=== PATIENT | female | born 1995 | race Caucasian/White ===

== ENCOUNTER → 2019-12-02 11:46 | Outpatient (BNVA) | payer SELFPAY | PROVIDERS: Family Provider Family Medicine; PCP Family Medicine; Visit Provider Nurse Practitioner Family | DX: R39.9 Unspecified symptoms and signs involving the genitourinary system (principal) | CPT/HCPCS: 81003 ==

== ENCOUNTER → 2020-02-03 11:55 | Outpatient (BNVA) | payer SELFPAY | PROVIDERS: Family Provider Family Medicine; PCP Family Medicine; Visit Provider Nurse Practitioner | DX: N39.0 Urinary tract infection, site not specified (principal) | CPT/HCPCS: 80053; 81000; 87077; 87086; 87186 ==

== ENCOUNTER → 2020-04-02 12:32 | Outpatient (BNVA) | payer SELFPAY | PROVIDERS: Family Provider Family Medicine; PCP Family Medicine; Visit Provider Nurse Practitioner | DX: R39.9 Unspecified symptoms and signs involving the genitourinary system (principal) | CPT/HCPCS: 80053; 81003; 87077; 87086; 87186 ==

== ENCOUNTER 2020-05-09 13:29 | Outpatient (CLI) | payer MEDICARE, SELFPAY | END 2020-05-09 13:30 | disposition home or self-care (01) | LOC: WOUND 13:30 | PROVIDERS: Family Provider Family Medicine; PCP Family Medicine; Visit Provider Emergency Medicine | DX: I96 Gangrene, not elsewhere classified (principal); L89.612 Pressure ulcer of right heel, stage 2 | CPT/HCPCS: 11042; G0463; L4397 ==

== ENCOUNTER → 2020-05-15 16:46 | Outpatient (BNVA) | payer MEDICARE, SELFPAY | PROVIDERS: Family Provider Family Medicine; PCP Nurse Practitioner; Visit Provider Nurse Practitioner Family | DX: N30.90 Cystitis, unspecified without hematuria (principal); Z86.69 Personal history of other diseases of the nervous system and sense organs; Z87.448 Personal history of other diseases of urinary system | CPT/HCPCS: 80053; 81001; 87077; 87086; 87186 ==

== ENCOUNTER 2020-05-16 14:59 | Outpatient (CLI) | payer MEDICARE, SELFPAY | END 2020-05-16 15:00 | disposition home or self-care (01) | LOC: WOUND 15:01 | PROVIDERS: Family Provider Family Medicine; PCP Nurse Practitioner; Visit Provider Emergency Medicine | DX: L89.613 Pressure ulcer of right heel, stage 3 (principal) | CPT/HCPCS: 11042 ==

== ENCOUNTER 2020-05-23 14:28 | Outpatient (CLI) | payer MEDICARE, SELFPAY | END 2020-05-23 14:29 | disposition home or self-care (01) | LOC: WOUND 14:29 | PROVIDERS: Family Provider Family Medicine; PCP Nurse Practitioner; Visit Provider Nurse Practitioner Family | DX: L89.613 Pressure ulcer of right heel, stage 3 (principal) | CPT/HCPCS: 11042 ==

== ENCOUNTER 2020-06-06 14:02 | Outpatient (CLI) | payer MEDICARE, SELFPAY | END 2020-06-06 14:03 | disposition home or self-care (01) | LOC: WOUND 14:03 | PROVIDERS: Family Provider Family Medicine; PCP Nurse Practitioner; Visit Provider Nurse Practitioner Family | DX: L89.613 Pressure ulcer of right heel, stage 3 (principal) | CPT/HCPCS: 99212 ==

== ENCOUNTER → 2020-08-08 08:52 | Outpatient (BNVA) | payer MEDICARE, SELFPAY | PROVIDERS: Family Provider Family Medicine; PCP Nurse Practitioner; Visit Provider Nurse Practitioner Family | DX: N30.90 Cystitis, unspecified without hematuria (principal) | CPT/HCPCS: 81000 ==

== ENCOUNTER → 2020-08-28 17:01 | Outpatient (BNVA) | payer MEDICARE, SELFPAY | PROVIDERS: Family Provider Family Medicine; PCP Nurse Practitioner; Visit Provider Nurse Practitioner Family | DX: Z20.828 Contact with and (suspected) exposure to other viral communicable diseases (principal); J02.9 Acute pharyngitis, unspecified | CPT/HCPCS: 87071; 87635; 87880 ==

== ENCOUNTER 2020-11-15 10:12 | Outpatient (CLI) | payer MEDICARE, SELFPAY ==
--- NOTE | 2020-11-15 10:19 | US_ITS ---
WS: [id number] ULTRASOUND RENAL TECHNIQUE: Ultrasound examination of both kidneys. CLINICAL INFORMATION: HX OF NEUROGENIC BLADDER COMPARISON: None. FINDINGS: RIGHT: Right kidney is normal in size and appearance. Echogenicity: Normal. Cortical thickness: 1.0 cm; Normal. Hydronephrosis: None. Perinephric fluid: None. Right kidney measures: 10.6 cm x 5.5 cm x 4.2 cm. LEFT: Left kidney is normal in size and appearance. Echogenicity: Normal. Cortical thickness: 1.2 cm; Normal. Hydronephrosis: None. Perinephric fluid: None. Left kidney measures: 11.2 cm x 4.3 cm x 5.3 cm. Normal visualized aorta. Mild diffuse bladder wall thickening. US/US renal BI* [id number] IMPRESSION: 1. Normal renal ultrasound. 2. Mild diffuse bladder wall thickening.
== END 2020-11-15 10:13 | disposition home or self-care (01) ==
LOC: US 10:16
PROVIDERS: PCP Nurse Practitioner Family; Visit Provider Urology
DX: Z87.448 Personal history of other diseases of urinary system (principal); N30.90 Cystitis, unspecified without hematuria
CPT/HCPCS: 76770; 81003; 87077; 87086; 87184

== ENCOUNTER → 2020-12-26 11:28 | Outpatient (BNVA) | payer MEDICARE, SELFPAY | PROVIDERS: PCP Nurse Practitioner Family; Visit Provider Nurse Practitioner Family | DX: N39.0 Urinary tract infection, site not specified (principal); M79.89 Other specified soft tissue disorders; L81.9 Disorder of pigmentation, unspecified; G82.20 Paraplegia, unspecified; R11.0 Nausea; N30.90 Cystitis, unspecified without hematuria | CPT/HCPCS: 80053; 81000; 85025 ==

== ENCOUNTER 2021-01-22 12:12 | Outpatient (CLI) | payer MEDICARE, SELFPAY ==
--- NOTE | 2021-01-22 12:45 | USCV_ITS ---
IsaacsCynthia crewstie Age: 25 Gender: F : 1995 Exam Date: 01/22/2021 12:35 Ordering Phys: Penny SethC INSULATION BOARD BACK TENDER-C Technologist: Mey Hernandez Exam Location: [facility] [place] Indication: BLE SWELLING AND DISCOLORATION HISTORY: Lower extremity swelling. PROCEDURES: The following venous structures were evaluated: common femoral vein, profunda vein, proximal portion of the greater saphenous vein, superficial femoral vein, and the popliteal vein. In addition, the posterior tibial and peroneal trunk were evaluated. Serial compression, augmentation maneuvers, and spectral Doppler flow evaluation were performed. FINDINGS: No evidence of DVT seen in any vessel visualized at this time. CONCLUSIONS No evidence of right lower extremity DVT. No evidence of left lower extremity DVT. Paulo Thayer MD (Electronically Signed) Final Date: 22 January 2021 17:21 S
== END 2021-01-22 12:13 | disposition home or self-care (01) ==
LOC: RAD 12:18
PROVIDERS: PCP Nurse Practitioner Family; Visit Provider Nurse Practitioner Family
DX: M79.89 Other specified soft tissue disorders (principal); L81.9 Disorder of pigmentation, unspecified
CPT/HCPCS: 93970

== ENCOUNTER 2021-01-23 12:21 | Outpatient (CLI) | payer MEDICARE, SELFPAY ==
--- NOTE | 2021-01-23 12:45 | USCV_ITS ---
Torrie Isaacs Age: 25 Gender: F : 1995 Exam Date: 01/23/2021 12:51 Ordering Phys: Penny Seth TRANSPORTATION SUPERINTENDENTHernanC PIPE LAYER HELPER-C Technologist: Chapito Garcia Exam Location: [facility] [place] Indication: SWELLING DISCOLORATION Risk Factors: Previous Vascular Surgery: RIGHT LEFT BP: 128.0 / 71.00 BP: 120.0/ 68.00 0 0 Waveform Velocity (cm/s) Velocity (cm/s) Waveform Triphasic 131.7 Iliac Prox 155.5 Triphasic Triphasic 163.1 Iliac Mid 139.4 Triphasic Triphasic 139.5 Iliac Distal 140.2 Triphasic Triphasic 132.0 CHILD CARE EDUCATION COORDINATOR 166.3 Triphasic Monophasic 142.1 SFA Prox 157.2 Triphasic Triphasic 133.1 SFA Mid 132.1 Triphasic Monophasic SFA Dist Triphasic 125.9 177.1 Triphasic 120.5 POP 152.3 Triphasic Triphasic 140.3 TIE TAMPER 144.5 Triphasic Triphasic 95.3 DPA 121.2 Triphasic 1.1 LISS 1.1 FINDINGS Normal resting ABIs bilateral Triphasic flow pattern CONCLUSIONS Patent arteries bilaterally No significant arterial obstruction, based on the above findings Dr Jose Turner MD [facility] (Electronically Signed) Final Date: 23 January 2021 23:37 S
== END 2021-01-23 12:22 | disposition home or self-care (01) ==
LOC: RAD 12:26
PROVIDERS: PCP Nurse Practitioner Family; Visit Provider Nurse Practitioner Family
DX: M79.89 Other specified soft tissue disorders (principal); L81.9 Disorder of pigmentation, unspecified
CPT/HCPCS: 93925

== ENCOUNTER 2021-04-27 16:11 | Emergency (ER) | payer MEDICARE, SELFPAY ==
[2021-04-27 16:25] VITALS: BP 103/60; PULSE 66; RESP 15; TEMP 36.6; O2SAT 100; BMI 22.6
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
[2021-04-27 17:18] VITALS: RESP 15; TEMP 36.6; O2SAT 100
== END 2021-04-27 17:19 | disposition home or self-care (01) ==
PROVIDERS: Emergency Provider Physician Assistant; PCP Nurse Practitioner Family
DX: S71.112A Laceration without foreign body, left thigh, initial encounter (principal); Z87.891 Personal history of nicotine dependence; W29.8XXA Contact with other powered hand tools and household machinery, initial encounter
CPT/HCPCS: 12001; 99282

== ENCOUNTER → 2021-07-16 10:18 | Outpatient (BNVA) | payer MEDICARE, SELFPAY | PROVIDERS: PCP Nurse Practitioner Family; Visit Provider Nurse Practitioner Family | DX: R82.90 Unspecified abnormal findings in urine (principal); N39.0 Urinary tract infection, site not specified; N31.9 Neuromuscular dysfunction of bladder, unspecified; R32 Unspecified urinary incontinence; M62.838 Other muscle spasm; Z86.69 Personal history of other diseases of the nervous system and sense organs | CPT/HCPCS: 81000; 87077; 87086; 87184 ==

== ENCOUNTER → 2021-07-25 10:41 | Outpatient (BNVA) | payer MEDICARE, SELFPAY | PROVIDERS: PCP Nurse Practitioner Family; Visit Provider Nurse Practitioner Family | DX: N39.0 Urinary tract infection, site not specified (principal) | CPT/HCPCS: 81000 ==

== ENCOUNTER → 2021-10-02 10:56 | Outpatient (BNVA) | payer MEDICARE, SELFPAY | PROVIDERS: PCP Nurse Practitioner Family; Referring Provider Nurse Practitioner Family; Visit Provider Specialist | DX: G56.01 Carpal tunnel syndrome, right upper limb (principal); G56.21 Lesion of ulnar nerve, right upper limb; R20.0 Anesthesia of skin | CPT/HCPCS: 95910 ==

== ENCOUNTER → 2021-11-01 13:48 | Outpatient (BNVA) | payer MEDICARE, SELFPAY | PROVIDERS: PCP Nurse Practitioner Family; Visit Provider Nurse Practitioner Family | DX: N39.0 Urinary tract infection, site not specified (principal); R39.9 Unspecified symptoms and signs involving the genitourinary system | CPT/HCPCS: 81000 ==

== ENCOUNTER 2021-11-27 10:14 | Outpatient (CLI) | payer MEDICARE, SELFPAY | END 2021-11-27 10:15 | disposition home or self-care (01) | LOC: SPT 10:17 | PROVIDERS: PCP Nurse Practitioner Family; Visit Provider Orthopaedic Surgery | DX: Z46.89 Encounter for fitting and adjustment of other specified devices (principal); G56.01 Carpal tunnel syndrome, right upper limb | CPT/HCPCS: 81003; 87077; 87086; 87184; 97760; L3908 ==

== ENCOUNTER 2022-03-20 09:35 | Outpatient (CLI) | payer MEDICARE, SELFPAY ==
--- NOTE | 2022-03-20 09:42 | XRR_ITS ---
PROCEDURE INFORMATION: Exam: XR Abdomen Exam date and time: 03/20/2022 9:57 AM Age: 26 years old Clinical indication: Condition or disease; Kidney or ureter condition; Other: Recurrent UTI, prior surgery; Surgery type: C sections; Additional info: Recurrent UTI, silasb @ [facility] on 03/20/22 @ 0945. Appt to follow TECHNIQUE: Imaging protocol: XR of the abdomen. Views: Frontal supine view of the abdomen. 1 View. COMPARISON: CT abdomen pelvis w con* [id number] 02/24/2017 2:21 AM FINDINGS: Gastrointestinal tract: Bowel gas pattern is unremarkable. No sign of obstruction. The colon is stool distended. Intraperitoneal space: No visible free air. Organs: No renal or ureteral stone is visible. Bones/joints: Lower thoracic Hunter rods noted. Mild convex left upper lumbar curvature. XR/XR KUB [id number] IMPRESSION: 1. No acute findings. 2. Stool distended colon.
== END 2022-03-20 09:36 | disposition home or self-care (01) ==
PROVIDERS: PCP Nurse Practitioner Family; Visit Provider Urology
DX: N39.0 Urinary tract infection, site not specified (principal); N31.9 Neuromuscular dysfunction of bladder, unspecified; R32 Unspecified urinary incontinence; R82.71 Bacteriuria
CPT/HCPCS: 74018; 81003; 99213

== ENCOUNTER 2022-04-01 09:45 | Outpatient (CLI) | payer MEDICARE, SELFPAY ==
--- NOTE | 2022-04-01 09:52 | XRR_ITS ---
PROCEDURE INFORMATION: Exam: XR Bilateral Hips Exam date and time: 04/01/2022 9:56 AM Age: 26 years old Clinical indication: Right hip; Prior surgery; Surgery type: T8 fusion; Patient HX: Low back and hip pain for 6 months; Additional info: M25.551 - pain in right hip TECHNIQUE: Imaging protocol: XR bilateral hips. Views: 2 views of hips with pelvis when performed. COMPARISON: CT abdomen pelvis w con* [id number] 02/24/2017 2:21 AM FINDINGS: Bones/joints: No acute fracture or malalignment. Joint spaces are maintained. Soft tissues: Unremarkable. XR/XR hip BI 3-4V wo/w pel [id number] IMPRESSION: No acute fracture or malalignment.
--- NOTE | 2022-04-01 09:52 | XRR_ITS ---
PROCEDURE INFORMATION: Exam: XR Lumbosacral Spine Exam date and time: 04/01/2022 9:56 AM Age: 26 years old Clinical indication: Low back pain; Prior surgery; Surgery type: T8 fusion; Additional info: M54.50 - low back pain, unspecified TECHNIQUE: Imaging protocol: XR of the lumbosacral spine. Views: 2 or 3 views. COMPARISON: CT abdomen pelvis w con* [id number] 02/24/2017 2:21 AM FINDINGS: Bones/joints: No acute fracture or malalignment. Partially imaged spinal fixation hardware in the lower thoracic spine. Mild degenerative disc disease at L2-L3. Levocurvature of the lumbar spine. Soft tissues: Unremarkable. XR/XR lumbar spine 2-3V* [id number] IMPRESSION: No acute osseous findings.
== END 2022-04-01 09:46 | disposition home or self-care (01) ==
LOC: RAD 09:47
PROVIDERS: PCP Nurse Practitioner Family; Visit Provider Nurse Practitioner Family
DX: M25.551 Pain in right hip (principal); M25.552 Pain in left hip; M54.50 Low back pain, unspecified
CPT/HCPCS: 72100; 73522

== ENCOUNTER 2022-05-02 06:00 | Outpatient (RCR) | payer MEDICARE, SELFPAY | END 2022-05-18 23:59 | disposition home or self-care (01) | LOC: APT 06:00 | PROVIDERS: PCP Nurse Practitioner Family; Referring Provider Nurse Practitioner Family; Visit Provider Nurse Practitioner Family | DX: M54.50 Low back pain, unspecified (principal); M25.551 Pain in right hip; M25.552 Pain in left hip; Z86.69 Personal history of other diseases of the nervous system and sense organs | CPT/HCPCS: 97110; 97140; 97163 ==

== ENCOUNTER 2022-05-19 06:00 | Outpatient (RCR) | payer MEDICARE, SELFPAY | END 2022-06-18 23:59 | disposition home or self-care (01) | LOC: APT 06:00 | PROVIDERS: PCP Nurse Practitioner Family; Referring Provider Nurse Practitioner Family; Visit Provider Nurse Practitioner Family | DX: M54.50 Low back pain, unspecified (principal); M25.551 Pain in right hip; M25.552 Pain in left hip; Z86.69 Personal history of other diseases of the nervous system and sense organs | CPT/HCPCS: 97110; 97140 ==

== ENCOUNTER 2022-06-10 16:34 | Emergency (ER) | payer MEDICARE, SELFPAY ==
[2022-06-10 16:40] VITALS: BP 109/54; PULSE 86; RESP 17; TEMP 36.3; O2SAT 100; BMI 19.8
[2022-06-10 16:58] VITALS: BP 109/54; PULSE 86; RESP 17; TEMP 36.3; O2SAT 100
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
--- NOTE | 2022-06-10 17:06 | ECG_ITS ---
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 Measurements Intervals [place] Rate: 76 P: 72 NH: 162 QRS: 78 QRSD: 91 T: 72 QT: 371 QTc: 419 Interpretive Statements SINUS RHYTHM No previous ECG available for comparison Electronically Signed On 06-10-2022 17:49:11 CDT by Moses Rai M.D. [id number]
[2022-06-10 17:47] VITALS: BP 112/66; PULSE 81; RESP 17; TEMP 36.3; O2SAT 100
--- NOTE | 2022-06-20 14:20 | DCPLANNER ---
late entry - returned case inspector attempted to contact patient to speak with patient about allergy testing, unable to speak with patient and unable to leave a voicemail
== END 2022-06-10 17:48 | disposition home or self-care (01) ==
PROVIDERS: Emergency Provider Emergency Medicine; PCP Nurse Practitioner Family
DX: T78.40XA Allergy, unspecified, initial encounter (principal)
CPT/HCPCS: 93005; 99283

== ENCOUNTER 2022-06-19 06:00 | Outpatient (RCR) | payer MEDICARE, SELFPAY | END 2022-06-20 23:59 | disposition home or self-care (01) | LOC: APT 06:00 | PROVIDERS: PCP Nurse Practitioner Family; Visit Provider Nurse Practitioner Family | DX: M54.50 Low back pain, unspecified (principal); M25.551 Pain in right hip; M25.552 Pain in left hip; Z86.69 Personal history of other diseases of the nervous system and sense organs | CPT/HCPCS: 97110 ==

== ENCOUNTER 2022-09-03 11:17 | Outpatient (CLI) | payer MEDICARE, SELFPAY ==
--- NOTE | 2022-09-03 11:45 | MR_ITS ---
WS: [id number] MRI LUMBAR SPINE NONCONTRAST HISTORY: M54.50 - Low back pain, unspecified COMPARISON: None available. TECHNIQUE: Sagittal and axial multisequence imaging is submitted. Fusion hardware in the lower thoracic spine. Pedicle screws are noted at T10, T11 and T12. Mild LEFT curvature the lumbar spine. Posterior lumbar alignment is normal. Small amount of edema [place] ng the superior endplate of L3. Disc spaces and vertebral body heights are well-preserved. Conus terminates normally at L1-2 disc level. L1-L2: Mild LEFT facet joint arthritis. No stenosis. L2-L3: Mild bilateral facet joint arthritis. No stenosis. L3-L4: Bilateral facet joint arthritis, LEFT greater than RIGHT. No stenosis. L4-L5: Ligamentum flavum and mild facet joint arthritis. No significant stenosis. L5-S1: Normal. There is free fluid in the cul-de-sac. Complex RIGHT adnexal mass is probably a hemorrhagic cyst with some adjacent fluid. MR/MR lumbar spine wo con* [id number] IMPRESSION: 1. No significant central or foraminal stenosis or disc protrusions. 2. Mild joint arthritis as described above. 3. Physiologic free fluid in the cul-de-sac. Complex cystic mass in the RIGHT adnexa may be hemorrhagic cyst. Consider transvaginal pelvic ultrasound evaluat ion.
== END 2022-09-03 11:18 | disposition home or self-care (01) ==
PROVIDERS: PCP Nurse Practitioner Family; Visit Provider Nurse Practitioner Family
DX: G82.20 Paraplegia, unspecified (principal); G89.29 Other chronic pain; M47.816 Spondylosis without myelopathy or radiculopathy, lumbar region
CPT/HCPCS: 72148

== ENCOUNTER → 2022-09-29 15:44 | Outpatient (BNVA) | payer MEDICARE, SELFPAY | PROVIDERS: PCP Nurse Practitioner Family; Visit Provider Nurse Practitioner Family | DX: N39.0 Urinary tract infection, site not specified (principal) | CPT/HCPCS: 81000 ==

== ENCOUNTER → 2022-10-02 10:26 | Outpatient (BNVA) | payer MEDICARE, SELFPAY | PROVIDERS: PCP Nurse Practitioner Family; Referring Provider Nurse Practitioner Family; Visit Provider Orthopaedic Surgery | DX: M54.9 Dorsalgia, unspecified (principal); G82.20 Paraplegia, unspecified | CPT/HCPCS: 99203 ==

== ENCOUNTER 2022-10-24 15:08 | Outpatient (CLI) | payer MEDICARE, SELFPAY ==
--- NOTE | 2022-10-24 15:15 | USR_ITS ---
PROCEDURE INFORMATION: Exam: US First Trimester, Transabdominal and US , Transvaginal Exam date and time: 10/24/2022 3:27 PM Age: 27 years old Clinical indication: Lmp or gestational age (in weeks): 6w3d; Other: Known ovarian cyst; ; Patient HX: Pg; Additional info: Ovarian cyst seen on mri. Since that test she has tested +, for preg. LABS AND CLINICAL REPORTS: Last menstrual period start date: 08/02/2022 Gestational age (Established): 0 w 0 d TECHNIQUE: Imaging protocol: Real-time transabdominal obstetrical ultrasound of the maternal pelvis and a first trimester , less than 14 weeks 0 days, with image documentation. Transvaginal imaging was used for better evaluation of the fetus, adnexa, and/or cervix. COMPARISON: CT abdomen pelvis w con* [id number] 02/24/2017 2:21 AM FINDINGS: Gestation: Intrauterine gestation is visualized. No yolk sac is visualized. Nonviable intrauterine Embryonic/ heart rate: 0 bpm Extra-embryonic membranes/Placenta: Unremarkable. No subchorionic bleed. Amniotic fluid: Amniotic fluid and extra-amniotic fluid is normal for gestational age. BIOMETRY: Gestational age (AUA): 6 w 3 d Mean sac diameter: 4.5 cm. [place]-Rump length (CRL): 7.2 mm. EGA (CRL) is 6 w 3 d MATERNAL: Uterus: Uterus measures 10 cm x 5.5 cm x 7.6 cm. Cervix: Cervical length measures 4 cm. Right ovary/adnexa: Right ovary measures 2.5 cm x 3.1 cm x 3.3 cm. Right ovarian volume is 13.6 mL. Left ovary/adnexa: Left ovary measures 2.6 cm x 5.5 cm x 2.6 cm. Intraperitoneal space: No intraperitoneal free fluid. US/US OB <=14 wk fetus w transvag IMPRESSION: Findings are compatible with nonviable or failed intrauterine (crown-rump length greater than 7 mm and no heartbeat on transvaginal sonogram).
== END 2022-10-24 15:09 | disposition home or self-care (01) ==
LOC: RAD 15:09
PROVIDERS: PCP Nurse Practitioner Family; Visit Provider Nurse Practitioner Family
DX: R18.8 Other ascites (principal); N83.201 Unspecified ovarian cyst, right side
CPT/HCPCS: 76801; 76817

== ENCOUNTER 2022-10-26 14:19 | Emergency (ER) | payer MEDICARE, SELFPAY ==
[2022-10-26 14:33] VITALS: BP 125/69; PULSE 97; RESP 16; TEMP 36.9; O2SAT 100
--- NOTE | 2022-10-26 14:45 | USR_ITS ---
PROCEDURE INFORMATION: Exam: US , Limited Exam date and time: 10/26/2022 3:26 PM Age: 27 years old Clinical indication: Lmp or gestational age (in weeks): 08/02/2022; Other: Vag bleed; ; Additional info: 12 weeks with vaginal bleeding LABS AND CLINICAL REPORTS: Last menstrual period start date: 08/02/2022 Gestational age (Established): 12 w 1 d Estimated due date (Established): 05/09/2023 TECHNIQUE: Imaging protocol: Real-time ultrasound of the maternal uterus with image documentation. Exam focused on the clinical indication. COMPARISON: US OB <=14 wk fetus w transvag 10/24/2022 3:27 PM FINDINGS: Uterus: Uterus measures 5 cm x 13 cm x 6.4 cm. No viable intrauterine . The gestational sac contents are noted within the cervix. US/US OB limited [id number] IMPRESSION: No viable intrauterine . Inevitable miscarriage with gestational sac contents within the cervix.
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
[2022-10-26 15:37] LABS: Basophils % 0.1 %; Eosinophils # 0.1 10^3/uL (0.0-0.8); Eosinophils % 1.4 %; Hematocrit 41.7 % (37.0-47.0); Hemoglobin 14.2 g/dL (11.5-15.3); Lymphocytes % 9.5 %; Mean Corpuscular HGB Conc 34.1 g/dL (30.0-36.0); Mean Corpuscular Hemoglobin 29.9 pg (28.0-34.0); Mean Corpuscular Volume 87.8 fl (81-99); Mean Platelet Volume 8.9 fL (7.4-10.4); Monocytes # 0.4 10^3/uL (0.2-0.9); Monocytes % 3.7 %; Neutrophils # 8.58 10^3/uL (1.8-7.7); Nucleated Red Blood Cells % 0 %; Platelet Count 210 10^3/cmm (130-400); Red Blood Count 4.75 10^6/uL (4.1-5.3); Red Cell Distribution Width 11.9 % (12.1-15.1); White Blood Count 10.1 10^3/uL (4.0-10.0)
[2022-10-26 16:27] LABS: Alanine Aminotransferase 15 U/L (0-33); Albumin Level 4.9 g/dL (3.5-5.2); Alkaline Phosphatase 75 U/L (35-105); Anion Gap 15.7 (5-19); Aspartate Amino Transferase 14 U/L (0-32); Blood Urea Nitrogen 9 mg/dL (6-20); Calcium 9.9 mg/dL (8.5-10.5); Carbon Dioxide 25 mmol/L (22-29); Chloride 101 mmol/L (98-107); Globulin 3.5 g/dL (1.3-4.6); Glomerular Filtration Rate 190.1 mL/min (90-130); Glucose 91 mg/dL (65-115); Osmolality Calculated 284 mOsm/kg (285-295); Potassium 3.7 mmol/L (3.5-5.1); Sodium 138 mmol/L (136-145); Total Bilirubin 0.7 mg/dL (0.15-1.2); Total Protein 8.4 g/dL (6.6-8.7)
== END 2022-10-26 16:45 | disposition home or self-care (01) ==
PROVIDERS: Emergency Provider Physician Assistant; PCP Nurse Practitioner Family
DX: O03.9 Complete or unspecified spontaneous abortion without complication (principal); G82.20 Paraplegia, unspecified
CPT/HCPCS: 76815; 80053; 84702; 85025; 86850; 86900; 99284

== ENCOUNTER 2022-10-28 05:56 | Day surgery (SDC) | payer MEDICARE, SELFPAY ==
[2022-10-27 17:38] VITALS: BMI 20.6
[2022-10-28] VITALS (8 sets, daily range): BP systolic 107–128; BP diastolic 64–73; PULSE 79–97; RESP 16–22; TEMP 36.4–36.8; O2SAT 95–100
[2022-10-28] MEDS: sodium chloride 0.9% 1,000 ML 30 ML IV (06:38)
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
--- NOTE | 2022-10-28 07:41 | PM.OP ---
Operative Report Date of procedure: October 28, 2022 Pre-op diagnosis: Missed at 11 weeks estimated gestational age Post-op diagnosis: Same Procedure done: Dilation and curettage Specimens removed/disposition: Products of conception Pathology: Products of conception Surgeon: Cain San Estimated blood loss (mL): 20 Procedure: The patient was brought back to the operating room where she was placed in the dorsolithotomy position. She was prepped in usual fashion with Betadine. A weighted speculum was placed. A fine tooth tenaculum was then used to grasp the anterior lip of the cervix. The os was already dilated with contents in the os. A ring forcep was used to grasp some of the products of conception. Membranes ruptured and clear fluid returned. A curette was then used to curettage the intrauterine cavity. An excellent uterine cry was heard in all 4 quadrants of the uterine cavity. Products of conception were collected and sent to pathology. The tenaculum was removed. No bleeding was noted at the site of tenaculum. There was minimal bleeding noted during the procedure.
--- NOTE | 2022-10-28 08:04 | SUR.PHASEI ---
0756 PT TO PACU 5 PT AWAKES TO VOICE, GOOD RESP ON RA, MONITOR SR WITH NO ECTOPY, ABDOMEN SOFT BRITTANI PAD IN PLACE, NO BLEEDING NOTED NO PAIN OR NAUSEA, IV TO LT AC #20 JELCO WITH 500ML NS AT KVO RATE PER GRAVITY, ID BRACELET TO RT WRIST , PT ID'D X 2 IDENTIFIERS. 0813 PT AWAKE ALERT TAKING ICE CHIPS HOB AT 45 DEGREES PER PT REQUEST, PT IS PERIPLEGIC, VSS NO DISTRESS NOTED.
[2022-10-28] MEDS: HYDROcodone-acetaminophen 5-325 mg Tablet 1 TAB PO (09:06)
--- NOTE | 2022-10-28 14:04 | ANE.PACU2 ---
Inpatient post-anesthesia follow up: Airway intact: Yes Vital signs: Temperature 97.8 F Pulse Rate 86 Respiratory Rate 18 Blood Pressure 109/70 Pulse Oximetry 95 Oxygen Delivery Me thod Room Air Oxygen Flow Rate Fraction of Inspir ed Oxygen Hydration adequate: Yes Nausea and vomiting: No Pain level: 1 Mental status: Baseline
== END 2022-10-28 09:13 | disposition home or self-care (01) ==
PROVIDERS: PCP Nurse Practitioner Family; Visit Provider Family Medicine
PROC: (CPT 58120; principal; 2022-10-28 07:00)
DX: O02.1 Missed abortion (principal); Z3A.11 11 weeks gestation of pregnancy
CPT/HCPCS: 59820; 12345; 88305; J1100; J2405; J2704; J2710; J3010; J3490; J7030

== ENCOUNTER → 2023-02-03 14:28 | Outpatient (BNVA) | payer MEDICARE, SELFPAY | PROVIDERS: PCP Nurse Practitioner Family; Visit Provider Nurse Practitioner Family | DX: N39.0 Urinary tract infection, site not specified (principal) | CPT/HCPCS: 81000; 87077; 87086; 87184 ==

== ENCOUNTER 2023-08-11 22:39 | Outpatient (CLI) | payer MEDICARE, MEDICAID, SELFPAY ==
[2023-08-11 22:51] VITALS: BP 124/56; PULSE 82
[2023-08-11 23:07] VITALS: BP 119/57; PULSE 82
[2023-08-11 23:18] VITALS: RESP 17
[2023-08-11 23:19] VITALS: BMI 25.0
[2023-08-11 23:21] VITALS: BP 119/59; PULSE 74
--- NOTE | 2023-08-11 23:51 | PC.NURSE ---
Pt paralyzed from T8 down. No feeling.
== END 2023-08-11 23:44 | disposition home or self-care (01) ==
LOC: OPOB 22:39 → OBGYN 22:40
PROVIDERS: PCP Nurse Practitioner Family; Visit Provider Family Medicine
DX: O46.90 Antepartum hemorrhage, unspecified, unspecified trimester (principal); Z3A.00 Weeks of gestation of pregnancy not specified
CPT/HCPCS: 59025; 99211

== ENCOUNTER 2023-08-20 12:08 | Emergency (ER) | payer MEDICARE, SELFPAY ==
[2023-08-20 12:23] VITALS: BP 118/68; PULSE 84; RESP 17; TEMP 36.9; O2SAT 100; BMI 25.0
--- NOTE | 2023-08-20 12:48 | CT_ITS ---
WS: [id number] CT HEAD TECHNIQUE: Noncontrast CT of the head obtained from the skullbase to the vertex. CLINICAL INFORMATION: thunder clap headache/ COMPARISON: None. DLP: 994.[address] scans at [facility] use at least one of these dose optimization techniques: automated e xposure control; mA and/or kV adjustment per patient size (includes targeted exams where dose is matc hed to clinical indication); or iterative reconstruction. FINDINGS: No evidence of intracranial hemorrhage or mass effect. Ventricular system and basal cisterns are holcomb nt. No extra-axial fluid collections. No evidence of mass or mass effect. Normal haas-white different iation. Prior postoperative changes partial LEFT mastoidectomy. Opacification LEFT mastoid tip. RIGHT mastoid air cells are well aerated. IMPRESSION: 1. No evidence of intracranial hemorrhage or mass effect. 2. No acute intracranial findings.
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
[2023-08-20 14:26] VITALS: BP 149/82; PULSE 93; O2SAT 100
== END 2023-08-20 14:27 | disposition home or self-care (01) ==
PROVIDERS: Emergency Provider Family Medicine; PCP Nurse Practitioner Family
DX: O26.893 Other specified pregnancy related conditions, third trimester (principal); G43.909 Migraine, unspecified, not intractable, without status migrainosus; Z3A.34 34 weeks gestation of pregnancy
CPT/HCPCS: 70450; 99284

== ENCOUNTER 2023-09-19 17:21 | Inpatient (IN) | payer MEDICARE, MEDICAID, SELFPAY ==
[2023-09-19] VITALS (33 sets, daily range): BP systolic 97–152; BP diastolic 37–86; PULSE 83–160; RESP 17–18; TEMP 36.3–36.6; O2SAT 82–100; BMI 26.6
[2023-09-19 17:40] LABS: Basophils % 0.2 %; Eosinophils % 0.4 %; Hematocrit 36.7 % (36-47); Lymphocytes # 1.2 10^3/uL (0.8-4.8); Mean Corpuscular HGB Conc 34.1 g/dL (30-55); Mean Corpuscular Volume 88.2 fl (85-98); Mean Platelet Volume 10.2 fL (7.4-10.4); Monocytes # 0.5 10^3/uL (0.2-0.9); Monocytes % 5.2 %; Neutrophils # 8.17 10^3/uL (1.8-7.7); Neutrophils % 81.9 %; Nucleated Red Blood Cells % 0 %; Platelet Count 177 10^3/cmm (157-399); Red Blood Count 4.16 10^6/uL (3.85-5.65); Red Cell Distribution Width 12.7 % (12.1-15.1); White Blood Count 9.98 10^3/uL (3.29-11.43)
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
--- NOTE | 2023-09-19 17:52 | ANES.PAUD2 ---
Pre-Anesthetic Update Pre-Anesthetic Assessment: Date of Surgery/Procedure: 09/19/23 Proposed Procedure: Any changes to Pre-Anesthetic Assessment?: No Last Intake: PUmpkin pie at 2 pm, discussed NPO times with Dr. San, but nature of patient's condition dictates proceeding before optimal 8 hr NPO interval Labs Last 48hrs: Short CBC 09/19/23 Range/Units 17:30 WBC 9.98 (3.29-11.43) 10^ 3/uL Hgb 12.50 (11.27-16.99) g/ dL Hct 36.7 (36-47) % MCV 88.2 (85-98) fl Plt Count 177 (157-399) 10^3/c mm Neut % (Auto) 81.9 % Neut # (Auto) 8.17 H (1.8-7.7) 10^3/u L Vitals: Pulse Rate 86 09/19/23 17:41 Blood Pressure 128/75 09/19/23 17:41 Exam: Pre-Anes Outpt Exam: alert, oriented x 3, clear to auscultation bilaterally and regular rate & rhythm Cardiac Studies: No Data to Display
[2023-09-19] MEDS: famotidine 20 mg/2 mL INJ IVP (18:10)
[2023-09-19] MEDS: citric acid-sodium citrate 30 mL UDC PO (18:10)
[2023-09-19] MEDS: metoclopramide 5 mg/mL SDV 2 mL 10 MG IVP (18:10)
[2023-09-19] MEDS: BUPivacaine 0.5% INJ 30 mL INJECTION (18:43)
--- NOTE | 2023-09-19 19:59 | PM.OP ---
Operative Report Date of procedure: September 19, 2023 Pre-op diagnosis: 1. 28-year-old 4 para 2-0-1-2 at 38 weeks estimated geStational age 2. Active labor 3. Paraplegia Post-op diagnosis: Status post lower transverse section Procedure done: Repeat low-transverse section Specimens removed/disposition: 1. Male delivered from a vertex position with a weight of 7 pounds 3 ounces Apgars of 8 and 9 2. Placenta with a three-vessel cord delivered intact Surgeon: Cain San MD Estimated blood loss (mL): 500 Complications: None Procedure: The patient was brought back to the operating room where she was prepped and draped in usual sterile fashion. Anesthesia was found to be adequate. A lower transverse skin incision was then made with a #10 blade. I then dissected down to the underlying subcutaneous tissue until arriving at the prerectal fascia. The fascia was then nicked with the scalpel bilaterally. The fascial incisions were then carried laterally with Velazquez scissors. Attention was then turned to the superior aspect of the incision which was grasped with kochers and tented up away from the underlying rectus abdominis muscles. The muscles were then dissected away from the fascia manually, and later with Velazquez scissors. Attention was then turned to the inferior aspect of the incision, and the fascia was dissected away from the underlying muscle in similar fashion. The rectus abdominis muscles were then spread manually. The peritoneum was entered manually. Excellent visualization of the uterus was noted. A lower transverse uterine incision was then made with a #10 blade. Upon arriving at the intrauterine cavity, the uterine incision was then extended manually. The was noted to be in vertex position. The baby was delivered without difficulty. There was no meconium. There was no nuchal cord. The remainder of the body was then delivered and placed on the abdomen. The cord was cut and clamped. The baby was then handed to the waiting nurse. The placenta was removed intact. The uterus was externalized. The intrauterine cavity was cleansed of any remaining debris. The uterine incision was reapproximated in 2 layers. The first layer was performed with 0 Vicryl in a running locked stitch. The second layer was an imbricating stitch also using 0 Vicryl. The uterus was replaced into the abdomen. The peritoneum was then irrigated with warm saline. I reexamined the uterine incision and found it to be hemostatic. The rectus abdominis muscles were then reapproximated using 0 Vicryl in a running stitch. The fascia was then reapproximated using 0 Vicryl in running stitch. The subcutaneous tissue was reapproximated with 0 Vicryl in a running stitch. Skin was reapproximated with a 4-0 Vicryl in a running subcuticular stitch. A sterile dressing was placed. All counts were correct x2. Both the mother and baby were in stable condition.
[2023-09-19] MEDS: morphine 4 mg/mL SDV 1 mL IVP (22:00)
--- NOTE | 2023-09-19 23:55 | PC.NURSE ---
patient in PACU at this time. RN at bedside continuously.
[2023-09-20] VITALS (15 sets, daily range): BP systolic 112–156; BP diastolic 53–76; PULSE 82–125; RESP 16–17; TEMP 36.7–36.8; O2SAT 99
[2023-09-20] MEDS: HYDROcodone-acetaminophen 5-325 mg Tablet PO ×3 (02:02→20:35)
[2023-09-20] MEDS: dextrose 5%-lactated ringers 1,000 ML 125 ML IV (06:00)
[2023-09-20 07:20] LABS: Hematocrit 28.7 % (36-47); Mean Corpuscular HGB Conc 34.1 g/dL (30-55); Mean Corpuscular Hemoglobin 30.2 pg (27-33); Mean Corpuscular Volume 88.3 fl (85-98); Mean Platelet Volume 9.8 fL (7.4-10.4); Platelet Count 137 10^3/cmm (157-399); Red Blood Count 3.25 10^6/uL (3.85-5.65); Red Cell Distribution Width 12.6 % (12.1-15.1); White Blood Count 8.83 10^3/uL (3.29-11.43)
--- NOTE | 2023-09-20 09:03 | PM.OBGYPN ---
MORTGAGE CONSULTANT Subjective Subjective: Interval history: The patient is doing well. She did have some back pain last night that resolved with the morphine. She has now had hydrocortisone a couple of times but has not complained of her back pain anymore. Her diet was advanced and she has tolerated it well. She is breast-feeding well. Labor: Station: -3 Amniotic Membrane Status: Intact Monitor Mode: External Contraction Pattern: Irregular Vitals/I&O/Wt Last Vital Signs Temp 97.9 F 09/19/23 23:00 Pulse 96 09/20/23 05:51 Resp 18 09/19/23 22:00 BP 124/58 09/20/23 05:51 Pulse Ox 99 09/19/23 22:55 O2 Del Method Room Air 09/19/23 20:51 09/19/23 09/20/23 09/20/23 22:59 06:59 14:59 Output Total 800 / 800 Balance -800 / -800 Weight last 48 hrs Weight 165 lb Physical Exam Narrative: She is in no acute distress Lungs are clear auscultation bilaterally Her heart has a regular rate and rhythm Her fundus is below the umbilicus and firm Her dressing is clean, dry and intact Her extremities have trace edema Urinary Catheter Management: Thompson: Cath Placed During This Visit: yes Reason for Continuing Indwelling Catheter: Perioperative Use in Selected Surgeries Urinary Catheter Date of Insertion: 09/19/23 Urinary Catheter Time of Insertion: 18:35 Data 09/20/23 06:52 A&P Assessment and plan (1) Status post : She is recovering well. Because of her paraplegia we will determine whether or not it is appropriate for her to go home tomorrow. But if she is coping well, and she appears to be recovering appropriately that will be on the table. (2) Paraplegia: (3) Hx of section: Attestations Medical Necessity Statement*: Post care complicated by paraplegia. Anticipate she will be going home in the next 1 to 3 days Coding Level of Care Code Acute Code for Chg Fwd Diagnoses Status post Z98.891 Paraplegia G82.20 Hx of section Z98.891
[2023-09-20] MEDS: prenatal vitamin Capsule 1 CAP PO (10:36)
[2023-09-20] MEDS: docusate sodium 100 mg Capsule PO ×2 (10:36→20:35)
[2023-09-20] MEDS: ferrous sulfate EC 325 mg Tablet PO (10:36)
[2023-09-20] MEDS: lanolin oint 7 gm 1 APPLIC TOPICAL (17:19)
--- NOTE | 2023-09-20 21:03 | ANE.PACU2 ---
Inpatient post-anesthesia follow up: Airway intact: Yes Vital signs: Temperature 98.1 F Pulse Rate 112 Respiratory Rate 17 Blood Pressure 128/76 Pulse Oximetry 99 Oxygen Delivery Me thod Room Air Oxygen Flow Rate Fraction of Inspir ed Oxygen Hydration adequate: Yes Nausea and vomiting: No Pain level: 1 Mental status: Baseline
[2023-09-21 05:15] VITALS: BP 118/69; PULSE 90; RESP 16; TEMP 36.6; O2SAT 97
[2023-09-21] MEDS: HYDROcodone-acetaminophen 5-325 mg Tablet PO ×2 (06:07→12:02)
--- NOTE | 2023-09-21 07:38 | P.DS_ITS ---
Discharge Providers CLERK ENTRY LEVEL Date of Admission: 09/19/23 17:21 Date of Discharge: 09/21/23 Attending Provider at Admission: Cain San MD Attending Provider at Discharge: Cain San MD Primary Care Provider: FRANKLIN Natarajan Diagnoses at Discharge Discharge Diagnosis (1) Status post : Status: Acute (2) Paraplegia: Status: Acute (3) Hx of section: Status: Acute Permanent problem details: 2013 Reason for Visit Reason for Visit: contractions Hospital Course Hospital Course The patient presented to the hospital in active labor. Her cervix was found to be 5 cm dilated. She has had a history of 2 previous C-sections, and she was set up for a repeat as result. Her was unremarkable. There were no complications. Her course has also been unremarkable. Because she has a neurogenic bladder, we allowed her to keep the Thompson in during her hospital stay. We also kept her SCDs on the entire hospital stay as well. She tolerated a regular diet for the last 36 hours. Her incision has looked excellent. There has been no drainage. She has had some back pain but otherwise has done very well. Information Peripartum Data: Infant Delivery Method: Physical Exam Narrative: She is in no acute distress Lungs are clear auscultation bilaterally Her heart has a regular rate and rhythm Her fundus is below the umbilicus and firm Her dressing is clean, dry and intact Her extremities have trace edema Urinary Catheter Management: Thompson: Cath Placed During This Visit: yes Reason for Continuing Indwelling Catheter: Perioperative Use in Selected Schmidt rgeries Urinary Catheter Date of Insertion: 09/19/23 Urinary Catheter Time of Insertion: 18:35 Discharge Data Studies Completed and Pending Laboratory Results WBC 8.83 10^3/uL (3.29-11.43) 09/20/23 06:52 RBC 3.25 10^6/uL (3.85-5.65) L 09/20/23 06:52 Hgb 9.80 g/dL (11.27-16.99) L 09/20/23 06:52 Hct 28.7 % (36-47) L 09/20/23 06:52 MCV 88.3 fl (85-98) 09/20/23 06:52 MCH 30.2 pg (27-33) 09/20/23 06:52 MCHC 34.1 g/dL (30-55) 09/20/23 06:52 RDW 12.6 % (12.1-15.1) 09/20/23 06:52 Plt Count 137 10^3/cmm (157-399) L 09/20/23 06:52 MPV 9.8 fL (7.4-10.4) 09/20/23 06:52 Neut % (Auto) 81.9 % 09/19/23 17:30 Lymph % (Auto) 12.0 % 09/19/23 17:30 Esmeralda % (Auto) 5.2 % 09/19/23 17:30 Eos % (Auto) 0.4 % 09/19/23 17:30 Baso % (Auto) 0.2 % 09/19/23 17:30 Neut # (Auto) 8.17 10^3/uL (1.8-7.7) H 09/19/23 17:30 Lymph # (Auto) 1.2 10^3/uL (0.8-4.8) 09/19/23 17:30 Esmeralda # (Auto) 0.5 10^3/uL (0.2-0.9) 09/19/23 17:30 Eos # (Auto) 0.0 10^3/uL (0.0-0.8) 09/19/23 17:30 Baso # (Auto) 0.0 10^3/uL (0.0-0.1) 09/19/23 17:30 Nucleated RBC % (auto) 0 % 09/19/23 17:30 Nucleated RBCs # 0.0 /100WBC 09/19/23 17:30 Blood Type O Positive 09/19/23 17:30 Rho(D) Type Rh positive 09/19/23 17:30 Antibody Screen Negative 09/19/23 17:30 Vitals Last Vital Signs Temp 97.9 F 09/21/23 05:15 Pulse 90 09/21/23 05:15 Resp 16 09/21/23 05:15 BP 118/69 09/21/23 05:15 Pulse Ox 97 09/21/23 05:15 O2 Del Method Room Air 09/21/23 05:15 Results Labs OB ([facility]): Obstetrics US 10/26/22 Blood Type O Positive 09/19/23 Antibody Screen Negative 09/19/23 Hct 28.7 % (36-47) L 09/20/23 Hgb 9.80 g/dL (11.27-16.99) L 09/20/23 Rho(D) Type Rh positive 09/19/23 Plt Count 137 10^3/cmm (157-399) L 09/20/23 Ser , Semi-Qnt 1274.00 mIU/mL 10/26/22 Micro Urine Specimen 02/03/23 Discharge Plan Discharge Patient Disposition: Home Condition: Stable Prescriptions: New hydrocodone-acetaminophen 5-325 mg Tablet 1 tab PO Q6H PRN (Reason: Moderate To Severe Pain) 7 Days Qty: 28 0RF docusate sodium 100 mg Capsule 100 mg PO BID Qty: 14 0RF Continued epinephrine [EpiPen 2-Bebo] 0.3 mg/0.3 mL auto-injector 0.3 mg IM Q10M PRN (Reason: anaphylaxis) Qty: 2 0RF Rx Instructions: for 2 doses M- Plus 27 mg iron- 1 mg tablet 1 tab PO QAM Discontinued baclofen 20 mg tablet 40 mg PO BEDTIME Rx Instructions: 340B please No Action (DME) wheelchair See Rx Instructions .Route .MEDSUPPLY Qty: 1 0RF Rx Instructions: lifetime, 99 months+ Aero Z Discharge Orders: Discharge Order (Routine); Ordered 09/21/23 Ordered By: Cain San Referrals: Cain San MD [Physician] - 09/24/23 Discharge Diet: Usual diet Discharge Activity: Limit activity as instructed Patient Instructions: Opioid Safety Discharge Attestations CLERK ENTRY LEVEL Time Spent in Discharge Care*: less than 30 min Coding Level of Care Code Acute Code for Chg Fwd Diagnoses Status post Z98.891 Paraplegia G82.20 Hx of section Z98.891
[2023-09-21 09:30] VITALS: BP 117/73; PULSE 85; TEMP 36.7; O2SAT 98
[2023-09-21] MEDS: prenatal vitamin Capsule 1 CAP PO (09:31)
[2023-09-21] MEDS: docusate sodium 100 mg Capsule PO (09:32)
[2023-09-21] MEDS: lanolin oint 7 gm 1 APPLIC TOPICAL (13:37)
[2023-09-21 13:55] VITALS: BP 123/72; PULSE 88; TEMP 36.8; O2SAT 97
--- NOTE | 2023-09-21 13:57 | PC.NURSE ---
this charting done by Blanca Reddy
== END 2023-09-21 14:00 | disposition home or self-care (01) | DRG 787 ==
LOC: OPOB 09-20 09:07 → OBGYN 09-20 09:07
PROVIDERS: Admitting Provider Family Medicine; PCP Nurse Practitioner Family; Visit Provider Family Medicine
PROC: 10D00Z1 Extraction of Products of Conception, Low, Open Approach (ICD-10-PCS; CPT 59514; principal; 2023-09-19 18:15)
DX: O34.211 Maternal care for low transverse scar from previous cesarean delivery (principal); G82.20 Paraplegia, unspecified; O99.354 Diseases of the nervous system complicating childbirth; Z3A.38 38 weeks gestation of pregnancy; Z37.0 Single live birth; N31.9 Neuromuscular dysfunction of bladder, unspecified; O99.892 Other specified diseases and conditions complicating childbirth
CPT/HCPCS: 36415; 51702; 59025; 59409; 85025; 85027; 86850; 86900; 96374; 99211; J2270; J2274; J2765; J3010; J3490; J7121

== ENCOUNTER → 2023-11-23 13:24 | Outpatient (BNVA) | payer MEDICARE, MEDICAID, SELFPAY | PROVIDERS: PCP Nurse Practitioner Family; Visit Provider Nurse Practitioner Family | DX: S99.922A Unspecified injury of left foot, initial encounter (principal); M79.89 Other specified soft tissue disorders; X58.XXXA Exposure to other specified factors, initial encounter | CPT/HCPCS: 73630 ==

== ENCOUNTER → 2024-01-13 10:37 | Outpatient (BNVA) | payer MEDICARE, MEDICAID, SELFPAY | PROVIDERS: PCP Nurse Practitioner Family; Visit Provider Nurse Practitioner Family | DX: N39.0 Urinary tract infection, site not specified (principal) | CPT/HCPCS: 81000; 87077; 87086; 87184 ==

== ENCOUNTER → 2024-03-16 15:06 | Outpatient (BNVA) | payer MEDICARE, MEDICAID, SELFPAY | PROVIDERS: PCP Nurse Practitioner Family; Visit Provider Nurse Practitioner Family | DX: N39.0 Urinary tract infection, site not specified (principal) | CPT/HCPCS: 81000; 87077; 87086; 87184 ==

== ENCOUNTER → 2024-03-25 13:48 | Outpatient (BNVA) | payer MEDICARE, MEDICAID, SELFPAY | PROVIDERS: PCP Nurse Practitioner Family; Visit Provider Nurse Practitioner Family | DX: N39.0 Urinary tract infection, site not specified (principal) | CPT/HCPCS: 81000 ==

== ENCOUNTER → 2024-04-29 09:46 | Outpatient (BNVA) | payer MEDICARE, MEDICAID, SELFPAY | PROVIDERS: PCP Nurse Practitioner Family; Visit Provider Nurse Practitioner Family | DX: N39.0 Urinary tract infection, site not specified (principal); Z87.448 Personal history of other diseases of urinary system | CPT/HCPCS: 81003; 87077; 87086; 87184 ==

== ENCOUNTER → 2024-05-13 09:58 | Outpatient (BNVA) | payer MEDICARE, MEDICAID, SELFPAY | PROVIDERS: PCP Nurse Practitioner Family; Visit Provider Nurse Practitioner Family | DX: N39.0 Urinary tract infection, site not specified (principal) | CPT/HCPCS: 81000; 87086 ==

== ENCOUNTER 2024-09-15 15:19 | Emergency (ER) | payer MEDICARE, MEDICAID, SELFPAY ==
[2024-09-15 15:26] VITALS: BP 116/76; PULSE 103; TEMP 36.7; O2SAT 99; BMI 29.0
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
[2024-09-15] MEDS: amoxicillin-clav 875-125 mg Tablet 1 TAB PO (16:07)
[2024-09-15] MEDS: HYDROcodone-acetaminophen 5-325 mg Tablet 2 TAB PO (16:08)
[2024-09-15] MEDS: ciprofloxacin-dexameth Otic Susp 7.5 mL Btl 4 DROP EAR-LEFT (16:09)
== END 2024-09-15 16:20 | disposition home or self-care (01) ==
PROVIDERS: Emergency Provider Physician Assistant; PCP Nurse Practitioner Family
DX: H66.012 Acute suppurative otitis media with spontaneous rupture of ear drum, left ear (principal)
CPT/HCPCS: 99283

== ENCOUNTER 2024-10-04 18:44 | Emergency (ER) | payer MEDICARE, MEDICAID, SELFPAY ==
[2024-10-04 19:09] VITALS: BP 104/67; PULSE 94; RESP 16; O2SAT 100
[2024-10-04 20:08] LABS: Basophils % 0.4 %; Eosinophils # 0.1 10^3/uL (0.0-0.8); Hematocrit 39.7 % (36-47); Lymphocytes # 1.4 10^3/uL (0.8-4.8); Lymphocytes % 29.4 %; Mean Corpuscular HGB Conc 31.5 g/dL (30-55); Mean Corpuscular Hemoglobin 27.5 pg (27-33); Mean Corpuscular Volume 87.3 fl (85-98); Mean Platelet Volume 8.2 fL (7.4-10.4); Monocytes # 0.3 10^3/uL (0.2-0.9); Monocytes % 5.2 %; Neutrophils # 3.06 10^3/uL (1.8-7.7); Neutrophils % 63.8 %; Nucleated Red Blood Cells % 0 %; Platelet Count 199 10^3/cmm (157-399); Red Blood Count 4.55 10^6/uL (3.85-5.65); Red Cell Distribution Width 13.6 % (12.1-15.1)
[2024-10-04 20:22] LABS: HCG, Serum Qual Negative (Negative)
[2024-10-04 20:27] LABS: Alanine Aminotransferase 19 U/L (0-33); Albumin Level 4.3 g/dL (3.5-5.2); Alkaline Phosphatase 110 U/L (35-105); Anion Gap 19.8 (5-19); Aspartate Amino Transferase 17 U/L (0-32); Blood Urea Nitrogen 13 mg/dL (6-20); Calcium 9.4 mg/dL (8.5-10.5); Carbon Dioxide 26 mmol/L (22-29); Chloride 101 mmol/L (98-107); Creatinine Clr Calc Pharmacy 221.5392; Globulin 3.5 g/dL (1.3-4.6); Glomerular Filtration Rate 187.4 mL/min (90-130); Glucose 101 mg/dL (65-115); Lipase 21 U/L (13-60); Osmolality Calculated 296 mOsm/kg (285-295); Potassium 3.8 mmol/L (3.5-5.1); Sodium 143 mmol/L (136-145); Total Bilirubin 0.4 mg/dL (0.15-1.2); Total Protein 7.8 g/dL (6.6-8.7)
--- NOTE | 2024-10-04 20:30 | CTR_ITS ---
PROCEDURE INFORMATION: Exam: CT Abdomen And Pelvis With Contrast Exam date and time: 10/04/2024 9:02 PM Age: 29 years old Clinical indication: Bladder lithotripsy yesterday, abd pain w/ vomiting TECHNIQUE: Imaging protocol: Computed tomography of the abdomen and pelvis with contrast. Radiation optimization: All CT scans at this facility use at least one of these dose optimization techniques: automated exposure control; mA and/or kV adjustment per patient size (includes targeted exams where dose is matched to clinical indication); or iterative reconstruction. Contrast material: OMNI 350; Contrast volume: 100 ml; Contrast route: INTRAVENOUS (IV); COMPARISON: CR XR hip BI 3-4V wo/w pel [id number] 04/01/2022 9:56 AM RADIATION DOSE METRICS: Total DLP (mGy-cm): 747.97 FINDINGS: Liver: Normal. No mass. Gallbladder and biliary ducts: Normal. No calcified stones. No ductal dilation. Pancreas: Normal. No ductal dilation. Spleen: Normal. No splenomegaly. Adrenal glands: Normal. No mass. Kidneys and ureters: Normal. No hydronephrosis. Stomach and bowel: Colonic constipation is present. Appendix: No evidence of appendicitis. Intraperitoneal space: Unremarkable. No free air. No significant fluid collection. Vasculature: Unremarkable. No abdominal aortic aneurysm. Lymph nodes: Unremarkable. No enlarged lymph nodes. Urinary bladder: Urinary bladder wall thickening could be due to cystitis or lack of distention. Reproductive: Unremarkable as visualized. Bones/joints: Partially visualized postoperative changes in the lower thoracic spine. There are [id number] degenerative changes in the visualized spine. Soft tissues: Unremarkable. CT/CT abdomen pelvis w con* [id number] IMPRESSION: 1. Urinary bladder wall thickening could be due to cystitis or lack of distention. 2. Colonic constipation is present.
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
[2024-10-04 20:44] LABS: Add Urine Microscopic? NO
[2024-10-04] MEDS: HYDROcodone-acetaminophen 7.5-325 mg Tablet 1 TAB PO (20:46)
[2024-10-04] MEDS: ondansetron 2 mg/ML SDV 2 mL 8 MG IVP (20:46)
[2024-10-04 20:48] VITALS: PULSE 75; O2SAT 100
[2024-10-04 20:49] LABS: Bilirubin Urine Negative (Negative); Blood Urine Non-haemolysed trace (Negative); Glucose Urine UA Negative (Normal); Ketones Urine Negative (Negative); Leukocyte Esterase Urine 1+ (Negative); Nitrate Urine Negative (Negative); Protein Urine Negative (Negative); Specific Gravity, Urine 1.009 (1.005-1.030); Urine Appearance Clear (CLEAR); Urine Color Yellow (Yellow); Urobilinogen Urine 0.2 mg/dL (Negative); pH Urine 7.5 (5-7)
[2024-10-04 20:54] LABS: Bacteria Urine None Seen /hpf; Hyaline Casts Urine 0-4 /lpf; Squamous Epithelial Cell Urine 0-5 /hpf (0-5); WBC Urine 21-50 /hpf (0-5)
[2024-10-04 20:58] LABS: Add Urine Culture? Yes
[2024-10-04 20:59] LABS: Charge for UA Resulting for Rev
[2024-10-04] MEDS: iohexol 350 mg/mL 500 mL Btl (per mL) IV (21:05)
[2024-10-04] MEDS: cefdinir 300 MG CAPSULE PO (23:33)
[2024-10-04] MEDS: HYDROmorphone 1 mg/mL INJ 1 mL IVP (23:33)
[2024-10-04 23:52] VITALS: BP 132/58; PULSE 87; O2SAT 96
== END 2024-10-04 23:53 | disposition home or self-care (01) ==
PROVIDERS: Emergency Medicine; Emergency Provider Physician Assistant; PCP Nurse Practitioner Family
DX: N30.00 Acute cystitis without hematuria (principal)
CPT/HCPCS: 36415; 74177; 80053; 81003; 83690; 84703; 85025; 87086; 96374; 96375; 99285; J1171; J2405